=== PATIENT | female | born 1965 | race Asian ===

== ENCOUNTER → 2025-03-13 08:21 | Outpatient (REF) | payer OTHER, SELFPAY | LOC: HWWDC 08:21 | PROVIDERS: ATTENDING PHYSICIAN Obstetrics & Gynecology Gynecology; FAMILY PHYSICIAN Internal Medicine | DX: Z12.31 Encounter for screening mammogram for malignant neoplasm of breast (principal) | CPT/HCPCS: 77063; 77067 ==